=== PATIENT | male | born 2005 | race Caucasian/White ===

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

== ENCOUNTER 2023-02-03 21:28 | Emergency (ER) | payer OTHER ==
[2023-02-03 21:37] VITALS: BP 113/68; PULSE 74; RESP 16; TEMP 98.8; BMI 31.1
== END 2023-02-03 22:26 | disposition home or self-care (01) ==
LOC: FER 21:28
DX: N48.89 Other specified disorders of penis (principal)
CPT/HCPCS: 81003; 99283-25

== ENCOUNTER 2023-02-08 05:16 | Emergency (ER) | payer OTHER ==
[2023-02-08 05:27] VITALS: BP 132/82; PULSE 75; RESP 18; TEMP 97.9; BMI 31.1
[2023-02-08 06:12] LABS: URINE APPEARANCE CLEAR; URINE BILIRUBIN NEGATIVE (NEGATIVE); URINE COLOR YELLOW; URINE GLUCOSE (UA) NEGATIVE (NEGATIVE); URINE KETONE NEGATIVE (NEGATIVE); URINE LEUK ESTERASE NEGATIVE (NEGATIVE); URINE NITRITE NEGATIVE (NEGATIVE); URINE PROTEIN NEGATIVE (NEGATIVE); URINE UROBILINOGEN 0.2 mg/dL (0.2-1.0)
== END 2023-02-08 06:20 | disposition home or self-care (01) ==
LOC: JER 05:16
DX: N48.89 Other specified disorders of penis (principal)
CPT/HCPCS: 36415; 81003; 87491; 87591; 99283-25

== ENCOUNTER 2024-03-28 08:13 | Emergency (ER) | payer OTHER ==
[2024-03-28 08:19] VITALS: BP 101/65; PULSE 113; RESP 20; TEMP 98.1; BMI 30.6
[2024-03-28] MEDS ORDERED: DIPHTH,PERTUSS(ACELL),TET 0.5 ML DISP.SYRIN IM ONE (13:39)
[2024-03-28] MEDS: DIPHTH,PERTUSS(ACELL),TET 0.5 ML DISP.SYRIN IM ONE (13:44)
== END 2024-03-28 13:45 | disposition home or self-care (01) ==
LOC: JER 08:13
DX: S09.90XA Unspecified injury of head, initial encounter (principal); S50.311A Abrasion of right elbow, initial encounter; W22.8XXA Striking against or struck by other objects, initial encounter
CPT/HCPCS: 70450-TC; 70486-TC; 72125-TC; 99284-25